=== PATIENT | female | born 1985 | race Caucasian/White ===

== ENCOUNTER 2016-11-19 13:55 | Observation (INO) ==
[2016-11-19] MEDS ORDERED: FAMOTIDINE 20 MG/2 ML VIAL IV STA (14:32)
[2016-11-19] MEDS ORDERED: fentaNYL 100 MCG/2 ML VIAL IV STA (14:33)
[2016-11-19] MEDS ORDERED: ONDANSETRON 4 MG/2 ML VIAL IV STA (14:33)
[2016-11-19] MEDS ORDERED: fentaNYL 100 MCG/2 ML VIAL ONE ×2 (14:40→16:52)
[2016-11-19] MEDS ORDERED: ONDANSETRON 4 MG/2 ML VIAL ONE ×2 (14:40→16:52)
[2016-11-19] MEDS ORDERED: FAMOTIDINE 20 MG/2 ML VIAL IV ONE (14:41)
--- NOTE | 2016-11-19 14:42 | Emergency Department Note ---
Roxi Camargo Mantricia, am scribing for, and in the presence of, Jamarcus Caal MD 14:39. Afua Camargo James D, MD, personally performed the services described in this documentation, ascribed by Johnnie Diane in my presence, and it is both accurate and complete [id number] . Arrival - Arrival Chief Complaint: Abdominal / Flank Pain Stated Complaint: abdominal pain,transfer for Dr Caal ED Nursing Triage Note: right sided abd pain - transfer from [facility] for futher evaluation of appendix - pt had CT abd there Mode of Arrival: Ambulatory Limitations: No Limitations Source: Patient Time Seen by Provider: 11/19/16 14:21 - History of Present Illness HPI Narrative: Pt is a 31 y/o white female arriving to ED as a transfer from [facility] for further evaluation of appendicitis. Pt states that she began having extreme abdominal pain this morning around 0730. she reports that she initially thought she had indigestion so she took a protonix and zantac; she reports no relief. Pt also c/ o nausea and minimal chest pain. She reports that her blood count while at [facility] was 15,000 with an elevated heart rate. She states that she was given demerol twice and zofran while at [facility]. Pt's LNMP was last week. She reports no other complaints to ED. Onset (ago): hour(s) Consistency: constant Date of Last Menstrual Period: 1 week Allergies/Adverse Reactions: Allergies Allergy/AdvReac Type Severity Reaction Status Date / Time Penicillins AdvReac Intermediate HIVES Verified 04/25/16 06:27 Hydromorphone [From Dilaudid] AdvReac Nausea Verified 11/19/16 14:13 Home Medications: Home Medications Medication Instructions Recorded Confirmed Type Vit 108/Iron/Folic AC 1 caplet PO DAILY 12/29/14 04/25/16 History [ One Tablet] Ibuprofen Tab [Motrin Tab] 800 mg PO Q8H PRN #30 tablet 01/04/15 04/25/16 Rx oxyCODONE/ACETAMINOPHEN 5-325 2 tablet PO Q4H PRN #30 tablet 01/04/15 04/25/16 Rx [Percocet 5-325] Ibuprofen Tab [Motrin Tab] 800 mg PO Q8H PRN #30 tablet 04/25/16 Rx Review of System - Review of System 12 point system: reviewed and no additional remarkable complaints except as stated - Review of System Constitutional: Absent: chills, diaphoresis, fever Respiratory: Absent: cough Cardiovascular: Present: chest pain Gastrointestinal: Present: abdominal pain, nausea. Absent: vomiting, diarrhea Medical,Surgical,& Family Hx - Medical History Neurology: No history of: Seizures Reproductive: No history of: Ectopic , Complication - Surgical History Thoracic Surgeries: Patient denies;: Organ Transplant Reproductive Surgeries: Surgical HX of;: Section (X 1), Dilation and Curettage (04/25/16), Gynecologic Surgery Patient denies;: Hysterectomy, Tubal Ligation - Family History Family History: Reports;: Family Hypertension (FATHER) Denies;: Family Anesthesia Reaction, Family Cancer, Family Diabetes, Family Heart Disease, Family Psychiatric Problems, Family Stroke - Social History Smoking Status: Never smoker Frequency of Alcohol Use: None Type of Drug Use: None Exam Physical Examination: ADULT: GENERAL: This is a well-nourished, well-developed female in no apparent distress. VITAL SIGNS: HEENT: Head is normocephalic and atraumatic. Pupils are equally round and reactive to light. Extraocular movement are intact. Oropharynx is benign with moist mucous membranes. NECK: Neck is soft and supple without tenderness. There are no masses. There is no lymphadenopathy. LUNGS: Lungs are clear to auscultation bilaterally. Chest rises symmetrically. There is no chest wall tenderness. CV: Heart is regular rate and rhythm without murmurs, rubs, or gallops. ABDOMEN: Abdomen is soft, tenderness and guarding in the right lower quadrant without rebound. There are no abnormal masses palpated. There is no organomegaly. Bowel sounds are hypoactive. Psoas sign is positive. SKIN: Skin is warm and dry. No rash. EXTREMITIES: Patient has full range of motion without tenderness. There is no pedal edema. NEUROLOGIC: Awake, alert, and oriented x4. Cranial nerves II through XII are grossly intact. There are no motorsensory deficits. PSYCHIATRIC: Normal affect. Normal mood. Vital Signs: Vital Signs Temperature 98.1 F 11/19/16 14:32 Pulse Rate 136 H 11/19/16 14:32 Respiratory Rate 20 11/19/16 14:32 Blood Pressure 104/79 11/19/16 14:32 O2 Sat by Pulse Oximetry 97 11/19/16 14:13 Course - Consultations Consultation #1: Discussed with Dr. Shawn GARSIA. Patient will be seen in the emergency department. Time: 14:42 Results - Labs Lab Results: I have reviewed the patients labs Labs: Lab performed at [facility] and reviewed by me: CBC: WBCs 14,400, hemoglobin 14.1, hematocrit 41.6, platelet count 252,000 Chemistry: Sodium 138, potassium 3.9, chloride 99, CO2 28.0, BUN 12, creatinine 0.76, glucose 113, calcium 9.9, albumin 4.4, T bili 0.76, alk phos 66, ALT 28, AST 34 Urine: Specific gravity 1.025, pH 5.5, WBCs 1-3, RBCs 0-1, urine negative. - Diagnostic Findings Procedure: CT Abdomen and Pelvis: image reviewed by me (Patient has a dilated appendix with appendicolith and periappendiceal stranding consistent with acute appendicitis.) Disposition Clinical Impression: Acute appendicitis Case discussed with: patient Disposition: Still a Patient Condition: Stable
[2016-11-19] MEDS: SODIUM CHLORIDE 0.9% 1,000 ML IV SCH ×2 (14:45→22:10)
[2016-11-19] MEDS ORDERED: TISSUE ADHESIVE 1 EACH APPLICATOR TOP ONE (14:58)
[2016-11-19] MEDS ORDERED: BUPIVACAINE 0.25% /EPI 10 ML VIAL ONE (14:58)
[2016-11-19] MEDS ORDERED: LIDOCAINE 1%/EPI INJ 20 ML VIAL ONE (14:59)
--- NOTE | 2016-11-19 15:12 | General Surg History&Physical ---
Assessment and Plan - Time spent with patient Time spent with patient: Less than 30 minutes (1) Acute appendicitis Status: Acute Assessment and plan: She has typical acute appendicitis. I discussed laparoscopic appendectomy in detail along with the risks including conversion to open procedure for abscess infections or bleeding or injury to bowel or bladder. She understands these risks and wishes to proceed. Current Visit: Yes Qualifiers: Acute appendicitis type: with localized peritonitis Qualified Code(s): K35.3 - Acute appendicitis with localized peritonitis History of Present Illness Chief complaint: Abdominal pain History of present illness: Ms. Fuller is a 31 year old female Who awakened with abdominal pain this morning to the left of her lower midline and then migrated to her right lower quadrant has been constant and increasingly severe over the course of the day. This is been accompanied by nausea and vomiting.. She has not had fever. She was seen at [facility] and had an elevated white blood cell count. She has a CT scan showing acute appendicitis. Her pain is constant and worse with movement. It is worse if she walks. It is moderate in severity. Home Medications Medication Instructions Recorded Confirmed Type Norgestimate-Ethinyl Estradiol 1 each PO DAILY 11/19/16 11/19/16 History [Tri-Sprintec Tablet] buPROPion HCl [Bupropion HCl Sr] 150 mg PO BID 11/19/16 11/19/16 History Allergies Allergy/AdvReac Type Severity Reaction Status Date / Time Penicillins AdvReac Intermediate HIVES Verified 04/25/16 06:27 Hydromorphone [From Dilaudid] AdvReac Nausea Verified 11/19/16 14:13 Medical,Surgical,& Family Hx - Medical History Neurology: No history of: Seizures Reproductive: No history of: Ectopic , Complication - Surgical History Thoracic Surgeries: Patient denies;: Organ Transplant Reproductive Surgeries: Surgical HX of;: Section (X 1), Dilation and Curettage (04/25/16), Gynecologic Surgery Patient denies;: Hysterectomy, Tubal Ligation - Family History Family History: Reports;: Family Hypertension (FATHER) Denies;: Family Anesthesia Reaction, Family Cancer, Family Diabetes, Family Heart Disease, Family Psychiatric Problems, Family Stroke - Social History Smoking Status: Never smoker Frequency of Alcohol Use: None Type of Drug Use: None Exam - Constitutional Vitals: Period Temp Pulse Resp BP Sys/Banegas Pulse Ox Last 24 Hr 98.1 F-98.1 F 136-136 20-20 104-104/79-79 97 General appearance: no acute distress - Head Head exam: Present: normocephalic - Eye Eye exam: Absent: scleral icterus - ENT Mouth exam: Present: normal voice - Neck Neck exam: Present: trachea midline - Respiratory Respiratory exam: Present: clear to auscultation bilaterally. Absent: accessory muscle use - Cardiovascular Cardiovascular exam: Present: RRR - GI/Abdominal GI/Abdominal exam: Present: tenderness, soft. Absent: distended, guarding, mass , rebound - Neurological Exam Neurological exam: Present: alert, oriented X3. Absent: motor sensory deficit Speech: Present: normal - Skin Skin exam: Present: normal color - Constitutional Constitutional: Absent: anorexia, chills, fever(s) - Gastrointestinal Gastrointestinal: Present: abdominal pain, nausea, vomiting. Absent: hematemesis, hematochezia, jaundice Hematologic/Lymphatic: Absent: easy bleeding Results - Diagnostic Findings Procedure: CT Abdomen and Pelvis: image reviewed by me
[2016-11-19] MEDS ORDERED: metroNIDAZOLE INJ 500 MG in PREMIX 1 EACH IV STA (15:13)
[2016-11-19] MEDS ORDERED: LEVOFLOXACIN INJ 500 MG in PREMIX 1 EACH IV STA (15:13)
[2016-11-19] MEDS ORDERED: LEVOFLOXACIN INJ 100 ML IV ONE (15:29)
--- NOTE | 2016-11-19 16:28 | Operative Note ---
Date of procedure: 11/19/16 Pre-op diagnosis: Acute appendicitis Post-op diagnosis: same Procedure: Laparoscopic appendectomy Findings and technique: After informed consent was obtained patient was brought the operating room and placed in supine position. After successful induction of general anesthesia the patient's abdomen was prepped and draped in usual sterile fashion. Local anesthesia was infiltrated the umbilicus were small transverse incision was made in an open technique used to enter the peritoneal cavity under direct vision. Briggs cannula was inserted and a pneumoperitoneum was established which was tolerated well. A 5 mm port was placed in the left lower quadrant and in the right upper quadrant under camera vision. The uterus and ovaries appeared normal. The appendix was acutely inflamed especially near the base of the appendix. There was no evidence of rupture and no significant periappendicitis. No other abnormality was noted. An Endo YAS stapling device with vascular marya was fired across the mesoappendix and then across the base the appendix and the appendix placed in an Endo Catch bag and removed through the umbilical port site. Staple lines were inspected and no bleeding noted. The ports removed and no bleeding noted from the port sites. Gas was evacuated from the abdomen and the fascial defect the umbilicus closed with running 0 Monocryl suture. Skin incisions were closed with 4-0 Vicryl subcuticular suture and tissue adhesive. She appeared to tolerate the procedure well and she did receive perioperative IV antibiotics. Anesthesia: CUCA, local Surgeon / Physician: Jason Escobar III. Estimated blood loss: minimal Specimens: other (Appendix) Condition: stable Disposition: PACU Discharge Plan - Discharge Data Disposition: Still a Patient - Discharge Medications No Action buPROPion HCl [Bupropion HCl Sr] 150 mg PO BID Norgestimate-Ethinyl Estradiol [Tri-Sprintec Tablet] 1 each PO DAILY - Follow Up or Referral - Forms/Instructions
[2016-11-19] MEDS ORDERED: metroNIDAZOLE 500 MG TABLET PO STA (16:31)
--- NOTE | 2016-11-19 16:43 | Anesthesia Post-Op ---
Anesthesia Post OP - Post Ansesthetic Evaluation Patient seen in post op: Yes Resp: within normal limits CV: within normal limits Mental: within normal limits Temp: within normal limits [id number]: within normal limits Nausea and Vomiting: within normal limits Pain: within normal limits
[2016-11-19] MEDS ORDERED: MIDAZOLAM 2 MG/2 ML VIAL ONE (16:51)
[2016-11-19] MEDS ORDERED: PROPOFOL 200 MG/20 ML VIAL IV ONE (16:51)
[2016-11-19] MEDS ORDERED: NEOSTIGMINE 10 MG/10 ML VIAL ONE (16:52)
[2016-11-19] MEDS ORDERED: GLYCOPYRROLATE 0.4 MG/2 ML VIAL ONE ×2 (16:52→16:53)
[2016-11-19] MEDS ORDERED: KETOROLAC 30 MG/1 ML VIAL ONE (16:52)
[2016-11-19] MEDS ORDERED: ACETAMINOPHEN 1,000 MG/100 ML VIAL IV ONE (16:52)
[2016-11-19] MEDS ORDERED: DEXAMETHASONE 10 MG/1 ML VIAL ONE (16:52)
[2016-11-19] MEDS ORDERED: SEVOFLURANE 1 UNIT/15 MINUTE INH ONE (16:53)
[2016-11-19] MEDS ORDERED: SUCCINYLCHOLINE 200 MG/10 ML VIAL ONE (16:53)
[2016-11-19] MEDS ORDERED: ROCURONIUM 100 MG/10 ML VIAL IV ONE (16:53)
--- NOTE | 2016-11-19 18:16 | EKG Report ---
Stationary ECG Study [facility] Test Date: 11/19/2016 6:17:19 PM Pat Name: TRAMAINE OVIEDO Department: Room: 343 Gender: F Nuclear Engineer: RUBY : 1985 Requested by: Jason Escobar Order Number: [id number] Reading MD: SANDRA ROMERO Intervals [place] Rate: 115 P: 55 CO: 156 QRS: 56 QRSD: 91 T: 42 QT: 333 QTc: 401 Interpretive Statements SINUS TACHYCARDIA Electronically Signed On 11-21-16 15:53:22 CDT by SANDRA ROMERO [email or web address]
[2016-11-19] MEDS: metroNIDAZOLE 500 MG TABLET PO SCH (21:20)
[2016-11-19] MEDS: LACTATED RINGERS 1,000 ML IV SCH (21:21)
[2016-11-19] MEDS: MORPHINE 2 MG/1 ML SYRINGE IV PRN (22:08)
[2016-11-19] MEDS: buPROPion SR 150 MG TABLET PO SCH (22:08)
[2016-11-19 22:15] LABS: Troponin I Only < 0.015 NG/ML (0.00-0.045)
[2016-11-19 22:18] LABS: Calcium 8.3 MG/DL (8.5-10.1); Magnesium 1.8 MG/DL (1.8-2.4); Osmolality,Calculated 281.3 MOS/KG (273-304); Potassium 4.4 MMOL/L (3.5-5.1)
--- NOTE | 2016-11-19 23:56 | Hospitalist Consult Note ---
Assessment and Plan (1) Tachycardia Status: Acute Current Visit: Yes (2) Acute appendicitis Status: Acute Assessment and plan: It appears to be a sinus tachycardia. She seems to be symptomatic on outpatient basis for this. I placed on panel monitor and will repeat her cardiac enzymes in 4 hours. I do not expect him to be elevated. I would continue to monitor her while she is in the hospital and she might need a small beta-moiz. Currently her heart rate is 107. Current Visit: Yes Qualifiers: Acute appendicitis type: with localized peritonitis Qualified Code(s): K35.3 - Acute appendicitis with localized peritonitis History of Present Illness - Consult Narrative Reason for consult: Tachycardia History of present illness: Ms. Fuller is a 31 year old female with past medical history significant for depression who was recently had an appendectomy he was admitted to Dr. Escobar the third is complaining about chest pain. Nursing got concerned about her for her tachycardia and call Dr. Escobar and he recommended a consult hospital medicine. Patient complains about chest pain is a heavy sensation seems to radiate down her left arm. She says her tachycardia and the symptoms have actually been going on for a couple weeks. Tonight her symptoms have returned and I saw her in consultation. CC: Jason Escobar, III., - Home Medications and Allergies Home Medications: Home Medications Medication Instructions Recorded Confirmed Type Norgestimate-Ethinyl Estradiol 1 each PO DAILY 11/19/16 11/19/16 History [Tri-Sprintec Tablet] buPROPion HCl [Bupropion HCl Sr] 150 mg PO BID 11/19/16 11/19/16 History Allergies/Adverse Reactions: Allergies Allergy/AdvReac Type Severity Reaction Status Date / Time Penicillins AdvReac Intermediate HIVES Verified 04/25/16 06:27 Hydromorphone [From Dilaudid] AdvReac Nausea Verified 11/19/16 14:13 Medical,Surgical,& Family Hx - Medical History Neurology: No history of: Seizures Reproductive: No history of: Ectopic , Complication Other: History of: Miscellaneous Medical Problems (Depression) - Surgical History Thoracic Surgeries: Patient denies;: Organ Transplant Abdominal Surgeries: Surgical HX of: Appendectomy Patient denies: Abdominal Surgery Reproductive Surgeries: Surgical HX of;: Section (X 1), Dilation and Curettage (04/25/16), Gynecologic Surgery Patient denies;: Hysterectomy, Tubal Ligation - Family History Family History: Reports;: Family Hypertension (FATHER), Additional Family History (Cardiovascular disease dad had issues at age 47) Denies;: Family Anesthesia Reaction, Family Cancer, Family Diabetes, Family Heart Disease, Family Psychiatric Problems, Family Stroke - Social History Smoking Status: Never smoker Frequency of Alcohol Use: None Type of Drug Use: None 12 point system: reviewed and no additional remarkable complaints except as stated Exam - Constitutional Vitals: Period Temp Pulse Resp BP Sys/Banegas Pulse Ox Last 24 Hr 97.6 F-99.2 F 106-153 15-21 104-135/45-86 96-100 - Head Head exam: Present: normal inspection - Eye Eye exam: Present: EOMI Pupils: Present: NIMESH - ENT ENT exam: Present: normal exam - Neck Neck exam: Present: normal inspection - Respiratory Respiratory exam: Present: clear to auscultation bilaterally - Cardiovascular Cardiovascular exam: Present: tachycardia - GI/Abdominal GI/Abdominal exam: Present: normal bowel sounds - Extremities Exam Extremities exam: Present: normal inspection - Back Exam Back exam: Present: normal inspection - Neurological Exam Neurological exam: Present: alert, oriented X3 - Psychiatric Psychiatric exam: Present: normal affect, normal mood - Skin Skin exam: Present: normal color Results - Labs CBC & BMP: 11/19/16 21:55
[2016-11-20] MEDS: LACTATED RINGERS 1,000 ML IV SCH ×3 (02:30→14:24)
[2016-11-20 03:18] LABS: Basophils % 0.2 % (0.0-0.8); Hematocrit 32.6 VOL% (35.7-47.0); Hemoglobin 11.2 GM/DL (12.0-16.0); Immature Granulocytes % 0.4 %; Immature Granulocytes Absolute 0.03 #; Lymphocytes # 0.7 10*3/uL (1.4-4.0); Lymphocytes % 8.5 % (21.3-54.2); Mean Corpuscular HGB Conc 34.4 GM/DL (32-36); Mean Corpuscular Hemoglobin 31 PG (27-34); Mean Corpuscular Volume 90.6 FL (87-102); Mean Platelet Volume 11.4 FL (9.6-12.0); Monocytes # 0.3 10*3/uL (0.11-0.8); Monocytes % 3.7 % (1.7-12.7); Neutrophils # 7.5 10*3/uL (1.4-7.4); Neutrophils % 87.2 % (38.7-73.9); Platelet Count 200 T/CUMM (130-400); Red Cell Distribution Width 12.2 % (9.3-17.3); White Blood Count 8.6 T/CUMM (4-12)
[2016-11-20 03:46] LABS: Calcium 8.8 MG/DL (8.5-10.1); Osmolality,Calculated 280.1 MOS/KG (273-304); Potassium 4.2 MMOL/L (3.5-5.1)
[2016-11-20 05:01] LABS: Lymphocytes 7 % (20-55); Segmented Neutrophils 92 % (50-85); Total Cells Counted 100
[2016-11-20 05:02] LABS: Anisocytosis 1+; Microcytosis 1+; Platelet Estimate Normal
[2016-11-20] MEDS: metroNIDAZOLE 500 MG TABLET PO SCH (05:19)
[2016-11-20] MEDS: MORPHINE 2 MG/1 ML SYRINGE IV PRN (05:22)
[2016-11-20] MEDS: SODIUM CHLORIDE 0.9% 1,000 ML IV SCH ×2 (05:26→14:24)
[2016-11-20] MEDS ORDERED: ENOXAPARIN 40 MG/0.4 ML SYRINGE SUBCUT SCH (09:00)
[2016-11-20] MEDS ORDERED: LEVOFLOXACIN INJ 500 MG in PREMIX 1 EACH IV SCH ×2 (09:00→10:30)
[2016-11-20] MEDS: buPROPion SR 150 MG TABLET PO SCH (09:12)
--- NOTE | 2016-11-20 09:26 | Event Note ---
She feels better. Her heart rate is normal this morning. She has no chest pain or shortness of breath. She had normal cardiac enzymes. Her EKG showed sinus tachycardia yesterday evening. Her abdomen is benign and she feels well. Issue with her heart rate is something that she has been having evaluated over the last couple of months. She states that her thyroid function tests were checked as an outpatient and were normal. We may see about setting her up to see cardiology as an outpatient. This does not appear to be related to her recent illness or surgery. From a surgical standpoint she should be ready for discharge today.
--- NOTE | 2016-11-20 10:05 | Discharge Summary ---
Hospital Course - Hospital Course Hospital Course: 31-year-old white female admitted by Dr. Shawn GARSIA on 11/19/2014 with abdominal pain that migrated to the right lower quadrant. CT scan showed an acute appendicitis. She was taken to the operating room on 11/19/2016 for laparoscopic appendectomy. Surgery was uneventful but the patient remained in sinus tachycardia for several hours after surgery. Heart rate ranged from the 120s to the 150s. Patient does have mild chest pain and some shortness of breath when it gets this high. Patient also states that this has been happening for several weeks now intermittently. She had a TSH checked several months ago and it was normal. She states her nurse practitioner also started her on some Wellbutrin thinking it was anxiety. She said this to helps sometimes but sometimes it does not. Hospital medicine was consulted last night and patient was given some IV fluids, EKG check showed sinus tachycardia, and troponins were negative. Patient feels well this morning with her heart rate in the 80s. Her abdomen is soft and appropriately tender, her incisions look good, she is ambulating in the room and she tolerated a regular diet. She will be discharged home with a one-week follow-up with Dr. Shawn GARSIA. Have also discussed her case with cardiology and we will have her follow-up with Dr. Nuñez with an EKG, BMP with mag, and a TSH in the next week. Complete discharge instructions were given to the patient and her family member in the room. Care coordination, chart review, and completed discharge paperwork took approximately 39 minutes. - Time spent with patient Time with patient DS: Greater than 30 minutes Specialty Discharge - Follow Up or Referrals Follow up with: Jason Escobar III., MD [Physician] - Discharge Plan - Discharge Data Disposition: Disch To Home/Self Care Condition at Discharge: Stable Discharge Diet: advance to your usual diet Activity: no lifting Hygiene: may shower Driving: other (No driving if taking pain medications) Contact your physician if you experience:: fever over 101, Nausea/Vomiting Wound / Dressing Care Instructions: Okay to shower daily with mild soap and water, pat dry, can leave open to the air - Discharge Medications New HYDROcodone/ACETAMIN 7.5-325 [Marion 7.5-325] 1 - 2 tablet PO Q4H PRN #30 tablet PRN Reason: Pain Moderate (4-7) Continue buPROPion HCl [Bupropion HCl Sr] 150 mg PO BID Norgestimate-Ethinyl Estradiol [Tri-Sprintec Tablet] 1 each PO DAILY - Follow Up or Referral Follow Up: Jason Escobar III., MD [Physician] - 1 Week Tamir Nuñez MD [Physician] - 1 Week (EKG, BMP with magnesium, TSH 1 day prior to visit with Dr. Nuñez) - Forms/Instructions Exam - Constitutional Vitals: Period Temp Pulse Resp BP Sys/Banegas Pulse Ox Last 24 Hr 97.6 F-99.2 F 81-153 15-21 101-135/45-86 96-100 Discharge Results Procedures and tests throughout hospitalization: Pending Orders 11/21/16 01:00 Troponin I & CK Total Routine Labs on day of discharge: Labs from last 24 hours 11/20/16 11/20/16 11/19/16 02:26 02:26 21:55 WBC 8.6 RBC 3.60 L Hgb 11.2 L Hct 32.6 L MCV 90.6 MCH 31 MCHC 34.4 RDW 12.2 Plt Count 200 MPV 11.4 Neut % (Auto) 87.2 H Lymph % (Auto) 8.5 L Bleckley % (Auto) 3.7 Eos % (Auto) 0.0 Baso % (Auto) 0.2 Neut # (Auto) 7.5 H Lymph # (Auto) 0.7 L Bleckley # (Auto) 0.3 Eos # (Auto) 0.0 Baso # (Auto) 0.0 Total Counted 100 Immature Gran % 0.4 Nucleated RBC % 0.0 Immature Gran # 0.03 Segmented Neutrophils 92 H Lymphocytes 7 L Monocytes 1 L Nucleated RBCs # 0.00 Platelet Estimate Normal Anisocytosis 1+ Microcytosis 1+ Sodium 142 141 Potassium 4.2 4.4 Chloride 108 H 109 H Carbon Dioxide 27 26 Anion Gap 11.2 10.4 BUN 7 7 Creatinine 0.70 0.90 GFR Calculation 118 87 BUN/Creatinine Ratio 10.00 7.00 Glucose 107 H 145 H Calculated Osmolality 280.1 281.3 Calcium 8.8 8.3 L Magnesium 1.8 Total Creatine Kinase CK-MB (CK-2) Troponin I 11/19/16 21:42 WBC RBC Hgb Hct MCV MCH MCHC RDW Plt Count MPV Neut % (Auto) Lymph % (Auto) Bleckley % (Auto) Eos % (Auto) Baso % (Auto) Neut # (Auto) Lymph # (Auto) Bleckley # (Auto) Eos # (Auto) Baso # (Auto) Total Counted Immature Gran % Nucleated RBC % Immature Gran # Segmented Neutrophils Lymphocytes Monocytes Nucleated RBCs # Platelet Estimate Anisocytosis Microcytosis Sodium Potassium Chloride Carbon Dioxide Anion Gap BUN Creatinine GFR Calculation BUN/Creatinine Ratio Glucose Calculated Osmolality Calcium Magnesium Total Creatine Kinase 98 CK-MB (CK-2) 1.1 Troponin I < 0.015 DS: Provider Date of admission: 11/19/16 16:28 Primary care physician: . No PCP Attending physician on admission: Jason Escobar III., Consults: 11/19/16 21:34 Consult to Physician [CONS] Routine Comment: Consulting Provider: Rito Sweet When should Consulting Provider be notified: Now Consult to Specialist Group: Hospitalist When should Consulting Provider be notified: Now Discharging clinician: LILIAM Mcelroy Expected date of discharge: 11/20/16
[2016-11-20 11:06] VITALS: BP 113/60
--- NOTE | 2016-11-21 11:18 | Pathology Report from [facility] ---
[facility] [place] ACCESSION # : [id number] PATIENT NAME : Kateryna Oviedo ORDERING DR : DEMARIO LARRY III, MD CLINICAL HX: Acute appendicitis POST-OP DX: Same SPECIMEN INFO: Appendix GROSS DESCRIPTION: The specimen is received in formalin labeled KATERYNA OVIEDO consists of an appendix with attached appendiceal fat. The appendix measures 6.6 x 1.0 cm. The serosa is mendoza with fibrin exudate present. The lumen is focally dilated and contains mendoza keratin material. There is a 1.2 x 0.5 cm brown fecalith present. No perforations identified. Tree Tapping Laborer sections submitted in one cassette. DIAGNOSIS FOR KATERYNA OVIEDO: APPENDIX: Acute appendicitis with peritonitis. COLLECTED DATE: 11/20/2016 [facility] [place] REPORT DATE: 11/21/2016 ELECTRONICALLY SIGNED BY: Adam Calzada III, M.D. 11/21/2016 - 9:38:10 [facility]
== END 2016-11-20 13:30 | disposition home or self-care (01) ==
LOC: N.ED 13:55 → N.EDINP 13:55 → N.3E 15:42
PROVIDERS: ADMIT Surgery; ATTEND Surgery

== ENCOUNTER 2021-05-06 06:02 | Inpatient (IN) ==
[2021-05-06] MEDS ORDERED: FAMOTIDINE 20 MG/2 ML VIAL IV ONE (06:12)
[2021-05-06] MEDS ORDERED: CITRIC ACID/SODIUM CITRATE 30 ML UDCUP PO ONE (06:12)
[2021-05-06] MEDS ORDERED: LACTATED RINGERS 1,000 ML IV SCH ×2 (06:30→09:30)
[2021-05-06 06:38] LABS: Basophils % 0.4 % (0.0-0.8); Eosinophils # 0.1 10*3/uL (0.0-0.87); Eosinophils % 1.2 % (0.00-10.9); Hematocrit 34.3 VOL% (35.7-47.0); Hemoglobin 10.9 GM/DL (12.0-16.0); Immature Granulocytes % 0.4 %; Immature Granulocytes Absolute 0.03 #; Lymphocytes # 2.2 10*3/uL (1.4-4.0); Lymphocytes % 28.9 % (21.3-54.2); Mean Corpuscular HGB Conc 31.8 GM/DL (32-36); Mean Corpuscular Volume 91.7 FL (87-102); Mean Platelet Volume 10.3 FL (9.6-12.0); Monocytes % 6.4 % (1.7-12.7); Neutrophils % 62.7 % (38.7-73.9); Platelet Count 247 T/CUMM (130-400); Red Blood Count 3.74 MC/CUMM (3.8-5.5); Red Cell Distribution Width 14.8 % (9.3-17.3); White Blood Count 7.7 T/CUMM (4-12)
[2021-05-06] MEDS ORDERED: CLINDAMYCIN INJ 900 MG/50 ML PREMIX IV ONE (06:52)
[2021-05-06] MEDS ORDERED: BUPIVACAINE SPINAL 0.75% 2 ML AMP SPINAL ONE (06:54)
[2021-05-06] MEDS ORDERED: ONDANSETRON 4 MG/2 ML VIAL ONE (06:54)
[2021-05-06] MEDS ORDERED: CARBOPROST TROMETHAMINE 250 MCG/ML AMP IM ONE (06:58)
[2021-05-06] MEDS ORDERED: TRANEXAMIC ACID 1,000 MG/10 ML VIAL ONE (06:58)
[2021-05-06] MEDS ORDERED: METHYLERGONOVINE 0.2 MG/1 ML AMP ONE (06:58)
[2021-05-06] MEDS ORDERED: miSOPROStoL 200 MCG TABLET ONE (06:59)
[2021-05-06] MEDS ORDERED: OXYTOCIN/LR 20 UNIT/1,000 ML BAG IV ONE ×2 (07:30→09:05)
[2021-05-06] MEDS ORDERED: ACETAMINOPHEN INJ 1,000 MG/100 ML VIAL IV ONE (08:26)
[2021-05-06] MEDS ORDERED: PHENYLEPHRINE 1 MG/10 ML SYRINGE IV ONE (08:26)
[2021-05-06] MEDS ORDERED: KETOROLAC 30 MG/1 ML VIAL ONE (08:26)
[2021-05-06 08:53] LABS: Cord Arterial Blood HCO3 26.1 MMOL/L
[2021-05-06 08:54] LABS: Cord Venous Blood HCO3 23.2 MMOL/L
[2021-05-06 08:58] LABS: Bacteria,Urine Occasional /HPF (Few); Bilirubin,Urine Negative (Negative); Blood, Urine Negative (Negative); Glucose,Urine (UA) Negative (Negative); Ketones,Urine Negative (Negative); Mucus,Urine Occasional /LPF (Occasional); Nitrite,Urine Negative (Negative); Protein,Urine Negative; RBC,Urine 2 /HPF (0-4); Squamous Epithelial Cell,Urine Occasional /HPF (0-10); Urine Appearance CLEAR (Clear); Urine Color Straw (Yellow); Urine Specific Gravity 1.008 (1.001-1.035); Urine Urobilinogen < 2.0 EU/DL (<2.0)
[2021-05-06] MEDS ORDERED: RHO(D) IMMUNE GLOBULIN 300 MCG SYRINGE IM ONE (09:05)
[2021-05-06] MEDS ORDERED: ONDANSETRON 4 MG/2 ML VIAL IV PRN (09:05)
[2021-05-06] MEDS ORDERED: ACETAMINOPHEN 325 MG TABLET PO PRN (09:05)
[2021-05-06] MEDS ORDERED: SIMETHICONE CHEW 80 MG TABLET PO PRN (09:05)
[2021-05-06] MEDS ORDERED: ACETAMINOPHEN 500 MG TABLET PO SCH (13:30)
[2021-05-06] MEDS: KETOROLAC 30 MG/1 ML VIAL IV SCH ×2 (15:04→21:38)
[2021-05-06] MEDS: ACETAMINOPHEN 500 MG TABLET PO SCH ×2 (15:11→21:35)
[2021-05-06] MEDS: CLINDAMYCIN INJ 900 MG/50 ML PREMIX IV SCH (16:20)
[2021-05-06] MEDS: DOCUSATE SODIUM 100 MG CAPSULE PO SCH (22:47)
[2021-05-07] MEDS: CLINDAMYCIN INJ 900 MG/50 ML PREMIX IV SCH (00:46)
[2021-05-07] MEDS: ACETAMINOPHEN 500 MG TABLET PO SCH ×3 (03:25→15:31)
[2021-05-07] MEDS: KETOROLAC 30 MG/1 ML VIAL IV SCH ×3 (03:26→15:31)
[2021-05-07 05:06] LABS: Basophils % 0.1 % (0.0-0.8); Eosinophils # 0.1 10*3/uL (0.0-0.87); Eosinophils % 1.4 % (0.00-10.9); Hematocrit 30.9 VOL% (35.7-47.0); Hemoglobin 9.9 GM/DL (12.0-16.0); Immature Granulocytes % 0.4 %; Immature Granulocytes Absolute 0.03 #; Lymphocytes # 2.1 10*3/uL (1.4-4.0); Lymphocytes % 25.3 % (21.3-54.2); Mean Corpuscular Volume 92.8 FL (87-102); Mean Platelet Volume 10.6 FL (9.6-12.0); Monocytes % 6.9 % (1.7-12.7); Neutrophils % 65.9 % (38.7-73.9); Platelet Count 213 T/CUMM (130-400); Red Blood Count 3.33 MC/CUMM (3.8-5.5); Red Cell Distribution Width 14.7 % (9.3-17.3); White Blood Count 8.4 T/CUMM (4-12)
[2021-05-07 05:38] LABS: Lymphocytes 34 % (20-55); Platelet Estimate Adequate; Segmented Neutrophils 64 % (50-85); Total Cells Counted 100
[2021-05-07 05:39] LABS: Hypochromia 1+; Microcytosis 1+
[2021-05-07] MEDS: IBUPROFEN 800 MG TABLET PO PRN ×2 (08:17→16:16)
[2021-05-07] MEDS: MULTIVITAMIN (PRENATAL) TABLET PO SCH (08:17)
[2021-05-07] MEDS: MAGNESIUM HYDROXIDE SUSP 30 ML UDCUP PO PRN ×2 (08:17→21:07)
[2021-05-07] MEDS: DOCUSATE SODIUM 100 MG CAPSULE PO SCH ×2 (08:17→21:07)
[2021-05-07] MEDS: ACETAMINOPHEN/CODEINE 300-30 MG TABLET PO PRN ×3 (08:18→21:07)
[2021-05-08] MEDS: IBUPROFEN 800 MG TABLET PO PRN (03:42)
[2021-05-08] MEDS: DOCUSATE SODIUM 100 MG CAPSULE PO SCH (08:13)
[2021-05-08] MEDS: MULTIVITAMIN (PRENATAL) TABLET PO SCH (08:13)
[2021-05-08 08:44] VITALS: BP 104/79
[2021-05-08] MEDS ORDERED: DIPH/TET/ACEL PERT BOOSTER VACCINE 0.5 ML VIAL IM ONE (10:23)
== END 2021-05-08 11:45 | disposition home or self-care (01) | DRG 785 ==
LOC: N.LD 06:02 → N.OB 15:55
PROVIDERS: ADMIT Obstetrics & Gynecology; ATTEND Obstetrics & Gynecology